=== PATIENT | male | born 1995 | race American Indian/Alaskan Native ===

== ENCOUNTER 2021-07-06 22:36 | Emergency (ER) | payer OTHER ==
[~2021-07-06] VITALS: Ht 182.9 cm; Wt 67.7 kg
[2021-07-06 22:49] VITALS: TEMP 98
[2021-07-06] MEDS ORDERED: BACTRIM DS 8001 TAB PO (23:03)
[2021-07-06 23:08] VITALS: BP 121/80; PULSE 75
== END 2021-07-06 23:08 | disposition home or self-care (01) ==
LOC: COL.ER 22:36
DX: L03.116 Cellulitis of left lower limb (principal)

== ENCOUNTER 2022-02-04 21:20 | Emergency (ER) | payer OTHER ==
[~2022-02-04 21:20] MED LIST: BACTRIM DS 8001 TAB PO
== END 2022-02-04 22:00 | disposition left against medical advice (07) ==
LOC: COL.ER 21:20
DX: J98.9 Respiratory disorder, unspecified (principal)